=== PATIENT | male | born 1980 | race Caucasian/White ===

== ENCOUNTER 2016-08-20 01:09 | Emergency (ER) | payer OTHER ==
[2016-08-20] MEDS ORDERED: HYDROmorphone HCL 1 MG/ML SYR ONE (01:49)
[2016-08-20] MEDS ORDERED: ONDANSETRON HCL 4 MG/2 ML VIAL ONE (01:49)
[2016-08-20 01:57] LABS: ALKALINE PHOSPHATASE 65 U/L (38-126); ALT 66 U/L (21-72); AST 40 U/L (17-59); BILIRUBIN, DIRECT 0.2 mg/dL (0.0-0.4); BILIRUBIN, TOTAL 0.6 mg/dL (0.2-1.3); BLOOD UREA NITROGEN 14 mg/dL (9-20); CALCIUM 9.2 mg/dL (8.4-10.2); CHLORIDE 101 mmol/L (98-107); CREATININE 0.9 mg/dL (0.7-1.3); EST GLOMERULAR FILTRATION RATE > 60 mL/min; ETHYL ALCOHOL 136 mg/dL (<10); GLUCOSE 108 mg/dL (70-100); LIPASE 76 U/L (23-300); MAGNESIUM 2.1 mg/dL (1.6-2.3); POTASSIUM 3.9 mmol/L (3.5-5.1); SODIUM 137 mmol/L (137-145)
[2016-08-20 02:05] LABS: BASOPHILS 0.3 % (0.0-2.0); EOSINOPHILS# 0.1 X 10^3uL (0.0-0.4); HEMATOCRIT 53.8 % (42.0-54.0); HEMOGLOBIN 18.9 g/dL (14.0-18.0); LYMPHOCYTES 25.9 % (20.0-40.0); LYMPHOCYTES# 2.6 X 10^3uL (0.8-3.8); MEAN CELL VOLUME 91.5 fL (80.0-100.0); MEAN CORPUS. HGB CONCENTRATION 35.2 g/dL (32.0-36.0); MEAN CORPUSCULAR HEMOGLOBIN 32.2 pg (29.0-35.0); MEAN PLATELET VOLUME 8.2 fL (7.4-10.4); MONOCYTES 10.2 % (2.0-10.0); NEUTROPHILS 62.6 % (54.0-75.0); NEUTROPHILS# 6.3 X 10^3uL (2.6-6.7); PLATELET COUNT 232 X 10^3uL (130-440); RED BLOOD COUNT 5.88 X 10^6uL (4.20-6.10); RED CELL DISTRIBUTION WIDTH 11.5 % (11.5-14.5)
[2016-08-20 02:15] LABS: URINE MUCUS NONE SEEN (Up to 25%); URINE RBC NONE SEEN (0-5/hpf); URINE WBC NONE SEEN (0-4/hpf)
[2016-08-20 02:31] LABS: URINE APPEARANCE CLEAR; URINE BACTERIA NONE SEEN (<10/hpf); URINE BILIRUBIN NEGATIVE (NEGATIVE); URINE BLOOD TRACE (NEGATIVE); URINE COLOR YELLOW; URINE GLUCOSE NORMAL (NEGATIVE); URINE KETONE NEGATIVE (NEGATIVE); URINE LEUKOCYTE ESTERASE NEGATIVE (NEGATIVE); URINE NITRITE NEGATIVE (NEGATIVE); URINE PH 5.5 (5-7); URINE PROTEIN NEGATIVE (NEG - TRACE); URINE SPECIFIC GRAVITY < or = 1.005 (0.001-1.035); URINE UROBILINOGEN 0.2mg/dL (Normal) (NEG-1mg/dL)
[2016-08-20 02:33] LABS: URINE SQUAMOUS EPITHELIAL CELL 0-5/hpf (<= 15/hpf)
[2016-08-20] MEDS ORDERED: MAG-AL PLUS XS SUSP 30 ML UDC ONE (02:41)
[2016-08-20] MEDS ORDERED: LIDOCAINE VISCOUS 2% 15 ML UDC ONE (02:42)
[2016-08-20] MEDS ORDERED: PHENOBARB/HYOSCY/ATROPINE/SCOP 16.2 MG/5 ML SYR ONE (02:42)
--- NOTE | 2016-08-20 03:10 | ER NURSING DOCUMENTATION ---
Nurse's Notes [facility] Name:Rojelio Thibodeaux Age:36 yrs Sex:Male :1980 Arrival Date:08/20/2016 Time:01:09 Bed4 Private MD:Reza Couch Diagnosis:Abdominal Pain, Epigastric Presentation: 08/20 01:13 Presenting complaint:. 4 01:13 Method Of Arrival: Walk In [facility] 01:13 Transition of care: Home. Notified ED Physician of Dr. Bonner notified. [facility] 01:13 Acuity: PATRICIA 3 [facility] 01:13 Presenting complaint: Patient states: URQ pain. Denies nausea. States has been drinking [facility] tonight. Triage Assessment: 01:15 General: Appears distressed, Behavior is cooperative, Smells of alcohol. Pain: [facility] Complains of pain in right upper quadrant and abdomen diffusely Pain does not radiate. Pain currently is 8 out of 10 on a pain scale. EENT: No deficits noted. Neuro: Level of Consciousness is awake, alert, ETOH. Cardiovascular: Rhythm is regular. Respiratory: Airway is patent Respiratory effort is even, unlabored, Respiratory pattern is regular, symmetrical. Historical: - Allergies: No known drug Allergies; - Home Meds: 1. marjuana Unknown - Tetanus: < 10 years. - Ebola Screening: : No symptoms or risks identified at this time. . - Immunization history: Flu Vaccine None. - Social history: Smoking status: Patient uses tobacco products, current every day smoker. Screenin:15 Infectious Disease Risk None. Abuse screen: Denies. Nutritional screening: No deficits [facility] noted. Assessment: 01:15 See Triage Assessment done by same RN. [facility] 01:15 GI: Bowel sounds present X 4 quads. Abd is soft and non tender X 4 quads. 4 Vital Signs: 01:15 BP 132 / 101; Pulse 89; Resp 15; Temp 98.5; Pulse Ox 90% on R/A; Weight 74.84 kg; 4 Height 5 ft. 10 in. (177.80 cm); Pain 8/10; 03:06 BP 155 / 89; Pulse 87; Resp 16; Temp 97.8; Pulse Ox 92% ; Pain 1/10; 4 01:15 Body Mass Index 23.67 (74.84 kg, 177.80 cm) [facility] ED Course: 01:11 Patient arrived in ED. em2 01:11 Reza Couch MD is Private Physician. em2 01:12 Brunilda Werner is Primary Nurse. mk4 01:15 Allergy Band Placed Arm band placed on Bed in low position Call Light in Reach Side [facility] rails up x2. Family accompanied patient. Labs ordered per protocol. Urine obtained. 01:15 Valuables Remains with patient. Pulse ox on. NIBP on. Door closed. Noise minimized. [facility] Lights dimmed. PO fluids given. Warm blanket given. Turned to left side. 01:25 Labs drawn. (by ED staff). Urine collected. Voided. Inserted peripheral IV: 20 gauge in [facility] left antecubital area. 01:34 Jefferson Bonner MD is Attending Physician. tl1 01:44 Triage completed. 4 02:18 Reza Couch MD is Referral Physician. tl1 Administered Medications: 02:08 Not Given (Patient Refused): Zofran 4 mg IVP once over 2 mins [facility] 02:08 Not Given (Patient Refused): Dilaudid 1 mg IVP once [facility] 02:56 Drug: GI Cocktail w/ Donnatol - (Maalox Suspension 30 ml, Phenobarbital-Belladonna 15 mk4 ml, Lidocaine Liquid 2 % 15 ml); Route: PO; 03:08 Follow up: Response: No adverse reaction; Pain is unchanged, physician notified [facility] Outcome: 02:19 Discharge ordered by MD. tl1 03:06 Discharged to home ambulatory. mk4 03:06 Condition: good 03:06 Discharge Assessment: Patient awake, alert and oriented x 3. No cognitive and/or functional deficits noted. Patient verbalized understanding of disposition instructions. 03:06 Discharge instructions given to patient, Instructed on discharge instructions, follow up and referral plans. Demonstrated understanding of instructions. 03:09 Patient left the ED. 4 08/21 09:21 Discharge F/U Call: Unable to reach: left voicemail: lp 13:16 Discharge F/U Call: Spoke with: patient. Are you having any pain? yes. How are you lp managing your pain? Have you filled your prescriptions? yes. Did your discharge instructions answer all of your questions? yes Have you made a f/u appointment? yes What is the one thing you feel we could do to improve? Patient's answer: Feeling better. has already seen Dr. Guerra Signatures: Azra Kunz RN RN lp Kira Ferris em2 Brunilda Werner4 Jefferson Bonner MD MD tl1
--- NOTE | 2016-08-20 03:10 | ER PHYSICIAN DOCUMENTATION ---
Physician Documentation [facility] Name:Rojelio Thibodeaux Age:36 yrs Sex:Male :1980 Arrival Date:08/20/2016 Time:01:09 Bed4 Private MD:Reza Couch EDKaileyJefferson Disposition: 08/20 04:00 Chart complete. tl1 Disposition: 08/20/16 02:19 Discharged to Home/Self Care. Impression: Abdominal Pain, Epigastric. - Condition is Good. - Medical Reconciliation form form. - Follow up: Reza Couch MD; When: 2 - 3 days; Reason: Recheck today's complaints, Continuance of care. - Problem is new. - Symptoms have improved. - Notes: CALL DR COUCH TOMORROW TO MAKE ARRANGEMENTS FOR AN ULTRASOUND OF THE GALLBLADDER. RETURN HERE FOR INCREASED PAIN, VOMITIG, FEVER OR IF WORSE IN ANY WAY. HPI: 01:35 This 36 yrs old Male presents to ER with complaints of Abdominal Pain. tl1 01:35 The patient presents with abdominal pain in the right upper quadrant. tl1 01:58 Onset: The symptoms/episode began/occurred gradually, 6 week(s) ago. The symptoms do tl1 not radiate. Associated signs and symptoms: Pertinent positives: anorexia, diarrhea, Pertinent negatives: blood in stools, chest pain, constipation, dysuria, fever, headache, hematuria, nausea, palpitations, shortness of breath, testicular pain, vomiting, vomiting blood. The symptoms are described as crampy, sharp. Modifying factors: the symptoms are aggravated by movement. Severity of pain: At its worst the pain was moderate in the emergency department the pain is unchanged. He says he has cut down his beer from about 18 beers per night to about 8 tonight. The pain got worse today for unclear reason. It is no worse with meals. He has been nauseated but not vomited recently. No f/c/s. No melena or hematochezia. His abdomen has become slowlly more distended, but he doesn't think his weight has changed, though he has no scale at home.. Historical: - Allergies: No known drug Allergies; - Home Meds: 1. marjuana Unknown - Tetanus: < 10 years. - Ebola Screening: : No symptoms or risks identified at this time. . - Immunization history: Flu Vaccine None. - Social history: Smoking status: Patient uses tobacco products, current every day smoker. ROS: 02:07 Abdomen/GI: Positive for abdominal pain, nausea, vomiting. tl1 02:07 Back: Negative for decreased range of motion. 02:07 : Negative for urinary symptoms, urinary frequency, hematuria, flank pain. 02:07 All other systems are negative. Exam: 02:08 Constitutional: This is a well developed, well nourished patient who is awake, alert, tl1 and in no acute distress. Head/Face: Normocephalic, atraumatic. Eyes: Pupils equal round and reactive to light, extra-ocular motions intact. Lids and lashes normal. Conjunctiva and sclera are non-icteric and not injected. Cornea within normal limits. Periorbital areas with no swelling, redness, or edema. ENT: Nares patent. No nasal discharge, no septal abnormalities noted. Tympanic membranes are normal and external auditory canals are clear. Oropharynx with no redness, swelling, or masses, exudates, or evidence of obstruction, uvula midline. Mucous membranes moist. Neck: Trachea midline, no thyromegaly or masses palpated, and no cervical lymphadenopathy. Supple, full range of motion without nuchal rigidity, or vertebral point tenderness. No Meningismus. Chest/axilla: Normal chest wall appearance and motion. Nontender with no deformity. No lesions are appreciated. Cardiovascular: Regular rate and rhythm with a normal S1 and S2. No gallops, murmurs, or rubs. Normal PMI, no JVD. No pulse deficits. 02:08 Respiratory: Lungs have equal breath sounds bilaterally, clear to auscultation and tl1 percussion. No rales, rhonchi or wheezes noted. No increased work of breathing, no retractions or nasal flaring. 02:08 Abdomen/GI: Inspection: abdomen appears normal, Bowel sounds: diminished, Palpation: soft, mild abdominal tenderness, Liver: tenderness, that is mild. Vital Signs: 01:15 BP 132 / 101; Pulse 89; Resp 15; Temp 98.5; Pulse Ox 90% on R/A; Weight 74.84 kg; mk4 Height 5 ft. 10 in. (177.80 cm); Pain 8/10; 03:06 BP 155 / 89; Pulse 87; Resp 16; Temp 97.8; Pulse Ox 92% ; Pain 1/10; mk4 01:15 Body Mass Index 23.67 (74.84 kg, 177.80 cm) mk4 MDM: 01:34 Patient medically screened. tl1 02:14 Differential diagnosis: acute coronary syndrome, appendicitis, bowel obstruction, tl1 coronary artery disease, cholecystitis, Cholelithiasis, sympomatic leaking abdominal aortic aneurysm, Mesenteric ischemia or infarction. Data reviewed: vital signs, nurses notes, EMS record, jail records, lab test result(s), EKG, and as a result, I will discharge patient. 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 Test interpretation: by ED physician or midlevel provider: plain radiologic studies. Counseling: I had a detailed discussion with the patient and/or guardian regarding: the historical points, exam findings, and any diagnostic results supporting the discharge/admit diagnosis, lab results, radiology results, the need for outpatient follow up, the need to transfer to another facility. ECG:. Medication response: The patient's symptoms have improved. ED course: He was stable.. Declined pain medications. No f/c/s. no further vommmiting.. 08/20 02:03 Order name: BASIC METABOLIC PANEL; Complete Time: 02:22 EDMS 08/20 02:21 Interpretation: SODIUM 137; POTASSIUM 3.9; CHLORIDE 101; CARBON DIOXIDE 21; GLUCOSE tl1 108; BLOOD UREA NITROGEN 14; CREATININE 0.9. 08/20 02:03 Order name: MAGNESIUM; Complete Time: 02:22 EDMS 08/20 02:22 Interpretation: Normal: MAGNESIUM 2.1. tl08/20 02:03 Order name: HEPATIC PANEL; Complete Time: 02:22 EDMS 08/20 02:22 Interpretation: Normal: ALT 66; ALBUMIN 5.0; ALKALINE PHOSPHATASE 65; AST 40; tl1 BILIRUBIN, TOTAL 0.6; BILIRUBIN, DIRECT 0.2; TOTAL PROTEIN 8.0. 08/20 02:03 Order name: LIPASE; Complete Time: 02:22 EDMS 08/20 02:22 Interpretation: Normal: LIPASE 76. tl08/20 02:03 Order name: ETHYL ALCOHOL; Complete Time: 02:22 EDMS 08/20 02:22 Interpretation: ETHYL ALCOHOL 136. tl08/20 02:08 Order name: CBC AUTO DIF, MDIF/RMOR IF IND; Complete Time: 02:22 EDMS 08/20 02:22 Interpretation: WHITE BLOOD COUNT 10.0; HEMOGLOBIN 18.9; HEMATOCRIT 53.8; PLATELET tl1 COUNT 232. 08/20 02:34 Order name: UA W/ MICRO -CULTURE IF IND; Complete Time: 14:26 EDMS 08/20 01:29 Order name: NPO; Complete Time: 02:06 mk4 Dispensed Medications: 02:08 Not Given (Patient Refused): Zofran 4 mg IVP once over 2 mins mk4 02:08 Not Given (Patient Refused): Dilaudid 1 mg IVP once mk4 02:56 Drug: GI Cocktail w/ Donnatol - (Maalox Suspension 30 ml, Phenobarbital-Belladonna 15 mk4 ml, Lidocaine Liquid 2 % 15 ml); Route: PO; 03:08 Follow up: Response: No adverse reaction; Pain is unchanged, physician notified mk4 Signatures: Brunilda Werner mk4 Jefferson Bonner MD MD tl1
== END 2016-08-20 03:09 | disposition home or self-care (01) ==
LOC: ER 01:09
DX: R10.13 Epigastric pain (principal); R11.2 Nausea with vomiting, unspecified; F10.20 Alcohol dependence, uncomplicated; F17.210 Nicotine dependence, cigarettes, uncomplicated
CPT/HCPCS: 80048; 80076; 80320; 81001; 83690; 83735; 85025; 99284; J1170; J2405